=== PATIENT | male | born 1970 | race Caucasian/White ===

== ENCOUNTER 2021-09-19 04:51 | Emergency (ER) | payer OTHER ==
[~2021-09-19] VITALS: Ht 175.3 cm; Wt 74.8 kg
[2021-09-19] MEDS ORDERED: LYRICA150 MG PO (04:59)
[2021-09-19] MEDS ORDERED: OMEPRAZOLE 20 M20 M1 PO (04:59)
[2021-09-19] MEDS ORDERED: PERCOCET 10-321 EAC1 PO (04:59)
[2021-09-19] MEDS ORDERED: LISINOPRIL20 MG PO (04:59)
[2021-09-19] MEDS ORDERED: METFORMIN HCL500 M3 PO (05:00)
[2021-09-19] MEDS ORDERED: GLIMEPIRIDE4 MG PO (05:00)
[2021-09-19] MEDS ORDERED: CRESTOR10 MG PO (05:01)
[2021-09-19] MEDS ORDERED: CELEXA 20 MG TA20 MG PO (05:01)
[2021-09-19] MEDS ORDERED: CRESTOR20 MG PO (05:01)
[2021-09-19] MEDS ORDERED: AMBIEN 10 MG TA10 MG PO (05:02)
[2021-09-19] MEDS ORDERED: FARXIGA10 MG PO (05:02)
[2021-09-19 05:34] LABS: ABSOLUTE LYMPHOCYTES 2.4 thou/uL (0.8-5.3); ABSOLUTE MONOCYTES 0.9 thou/uL (0.0-1.2); ABSOLUTE NEUTROPHILS 5.8 thou/uL (1.6-8.1); BASOPHILS 0.3 %; EOSINOPHILS 0.3 %; HEMATOCRIT 37.7 % (42.0-52.0); HEMOGLOBIN 12.5 gm/dL (14.0-18.0); LYMPHOCYTES 26.6 %; MCH 32.4 pg (26.0-34.0); MCHC 33.1 g/dL (28.0-37.0); MCV 97.8 fL (80.0-100.0); MONOCYTES 9.5 %; NUCLEATED RBCS 0 /100WBC; PLATELET COUNT* 316 thou/uL (150-400); POLYS 63.3 %; RBC 3.85 mil/uL (4.50-6.00); RDW-CV 13.1 % (10.5-14.5); WBC 9.2 thou/uL (4.0-11.0)
[2021-09-19 05:53] LABS: CALCIUM 8.5 mg/dL (8.5-10.1); CREATININE 0.9 mg/dL (0.6-1.3)
[2021-09-19 05:55] LABS: INFLUENZA A ANTIGEN Negative (Negative); INFLUENZA B ANTIGEN Negative (Negative)
[2021-09-19 06:03] LABS: TOTAL BILIRUBIN 0.9 mg/dL (<0.1-1.0)
[2021-09-19 06:54] LABS: URINE BILIRUBIN NEGATIVE (Negative); URINE BLOOD NEGATIVE (Negative); URINE CLARITY CLEAR; URINE COLOR DARK YELLOW; URINE GLUCOSE-RANDOM 2+ (Negative); URINE KETONES 1+ (Negative); URINE LEUKOCYTES-REFLEX NEGATIVE (Negative); URINE NITRITE-REFLEX NEGATIVE (Negative); URINE PROTEIN TRACE (Negative); URINE SPECIFIC GRAVITY 1.015 (1.005-1.030)
[2021-09-19] MEDS ORDERED: PROAIR HFA8.5 GM INH (06:54)
[2021-09-19 08:20] VITALS: BP 112/71
--- NOTE | 2021-09-19 10:27 | EKG ---
[place] [address] ELECTROCARDIOGRAM REPORT Name: NOY OROZCO Room: [facility]#: [id number] Admission: 09/19/21 Attend Phys: Discharge: 09/19/21 Date of : 66 Date of Service: 09/19/21 0501 Report #: [id number] THIS REPORT FOR: //name// [facility] ED Test Date: 2021-09-19 Test Time: 05:01:40 Pat Name: NOY OROZCO Department: Room: Gender: Computer Analyst Supervisor: ERINN : 1970 Requested By: Yue Teixeira Order Number: [id number] MD: Gilberto Beltran Measurements Intervals [place] Rate: 90 P: 31 [place]: 138 QRS: 26 QRSD: 85 T: 53 QT: 355 QTc: 435 Interpretive Statements Sinus rhythm Abnormal R-wave progression, early transition No previous ECG available for comparison Electronically Signed On 09-19-2021 10:27:10 [employer] by Gilberto Beltran [email or web address] <ELECTRONICALLY SIGNED> By: Gilberto Beltran MD, [facility] 09/19/21 1027 0501 0501 Gilberto Beltran MD, [facility] /EPI
[2021-09-20] MEDS ORDERED: PHENERGAN 25 MG25 M1 PO (03:55)
[2021-09-20] MEDS ORDERED: PROMS25 WY RECTAL (03:55)
[2021-09-20] MEDS ORDERED: CHLORDIAZEPOXID25 M1 PO ×2 (03:55→04:08)
== END 2021-09-19 08:20 | disposition home or self-care (01) ==
LOC: M.ERS 04:51
PROVIDERS: Emergency Medicine
DX: R50.9 Fever, unspecified (principal); Z20.822 Contact with and (suspected) exposure to COVID-19; R06.02 Shortness of breath; I10 Essential (primary) hypertension; E11.9 Type 2 diabetes mellitus without complications; Z79.899 Other long term (current) drug therapy; Z88.0 Allergy status to penicillin

== ENCOUNTER 2021-09-20 00:38 | Emergency (ER) | payer OTHER ==
[~2021-09-20] VITALS: Ht 175.3 cm; Wt 74.8 kg
[~2021-09-20 00:38] MED LIST: AMBIEN 10 MG TA10 MG PO; CELEXA 20 MG TA20 MG PO; CRESTOR10 MG PO; CRESTOR20 MG PO; FARXIGA10 MG PO; GLIMEPIRIDE4 MG PO; LISINOPRIL20 MG PO; LYRICA150 MG PO; METFORMIN HCL500 M3 PO; OMEPRAZOLE 20 M20 M1 PO; PERCOCET 10-321 EAC1 PO; PROAIR HFA8.5 GM INH
[2021-09-20 02:36] LABS: ABSOLUTE LYMPHOCYTES 1.9 thou/uL (0.8-5.3); ABSOLUTE MONOCYTES 0.8 thou/uL (0.0-1.2); ABSOLUTE NEUTROPHILS 5.8 thou/uL (1.6-8.1); BASOPHILS 0.5 %; EOSINOPHILS 0.1 %; HEMATOCRIT 36.5 % (42.0-52.0); HEMOGLOBIN 12.3 gm/dL (14.0-18.0); LYMPHOCYTES 22.6 %; MCH 32.6 pg (26.0-34.0); MCHC 33.6 g/dL (28.0-37.0); MCV 96.8 fL (80.0-100.0); MONOCYTES 9.2 %; MPV 7.6 fl. (7.2-11.1); NUCLEATED RBCS 0 /100WBC; PLATELET COUNT* 309 thou/uL (150-400); POLYS 67.6 %; RBC 3.77 mil/uL (4.50-6.00); RDW-CV 13.1 % (10.5-14.5); WBC 8.5 thou/uL (4.0-11.0)
[2021-09-20 03:09] LABS: CALCIUM 8.5 mg/dL (8.5-10.1); CREATININE 0.9 mg/dL (0.6-1.3); POTASSIUM 4.2 mmol/L (3.5-5.1)
[2021-09-20 03:14] LABS: ALBUMIN 3.1 g/dL (3.4-5.0); TOTAL BILIRUBIN 0.8 mg/dL (<0.1-1.0)
[2021-09-20] MEDS ORDERED: PROMS25 WY RECTAL (03:55)
[2021-09-20] MEDS ORDERED: PHENERGAN 25 MG25 M1 PO (03:55)
[2021-09-20] MEDS ORDERED: CHLORDIAZEPOXID25 M1 PO ×2 (03:55→04:08)
[2021-09-20 04:11] VITALS: BP 137/68
--- NOTE | 2021-09-20 12:25 | EKG ---
[place] [address] ELECTROCARDIOGRAM REPORT Name: NOY OROZCO Room: [facility]#: [id number] Admission: 09/20/21 Attend Phys: Discharge: 09/20/21 Date of : 66 Date of Service: 09/20/21 0047 Report #: [id number] THIS REPORT FOR: //name// [facility] ED Test Date: 2021-09-20 Test Time: 00:47:41 Pat Name: NOY OROZCO Department: Room: Gender: Payroll Associate: ERINN : 1970 Requested By: Carol Stewart Order Number: [id number] MD: London Vega Measurements Intervals [place] Rate: 88 P: 31 [place]: 154 QRS: 22 QRSD: 79 T: 46 QT: 363 QTc: 440 Interpretive Statements Sinus rhythm Abnormal R-wave progression, early transition Compared to ECG 09/19/2021 05:01:40 No significant changes Electronically Signed On 09-20-2021 12:25:40 PUBLIC HEALTH NURSE by London Vega [email or web address] <ELECTRONICALLY SIGNED> By: London Vega MD, FACC 09/20/21 1225 0047 0047 London Vega MD, [facility] /EPI
== END 2021-09-20 04:11 | disposition home or self-care (01) ==
LOC: M.ERS 00:38
PROVIDERS: Personal Emergency Response Attendant
DX: F11.93 Opioid use, unspecified with withdrawal (principal); I10 Essential (primary) hypertension; E11.9 Type 2 diabetes mellitus without complications; Z79.899 Other long term (current) drug therapy; Z88.0 Allergy status to penicillin